=== PATIENT | male | born 1955 ===

== ENCOUNTER 2018-04-13 23:46 | Emergency (ER) | payer SELFPAY ==
[~2018-04-13] VITALS: Ht 175.3 cm; Wt 72.7 kg
[2018-04-13 23:56] VITALS: BP 143/63
[2018-04-14] MEDS ORDERED: METO25 PO (00:03)
[2018-04-14 00:09] LABS: GLUCOSE,POINT OF CARE 79 MG/DL (70-110)
== END 2018-04-14 02:00 | disposition left against medical advice (07) ==
LOC: EMS 23:46
DX: F10.129 Alcohol abuse with intoxication, unspecified (principal); Z53.21 Procedure and treatment not carried out due to patient leaving prior to being seen by health care provider